=== PATIENT | female | born 1945 | race Caucasian/White ===

== ENCOUNTER → 2020-07-12 | Outpatient (CLI) | payer MEDICARE ==
--- NOTE | 2020-07-17 15:55 | PE ---
PET/CT HISTORY: R 91.8, solitary pulmonary nodule, initial Patient received 12.5 mCi F-18 FDG intravenously delayed scanning was performed from the skull base t o the mid thighs. A localization and attenuation correction CT scan was performed. Correlation to chest CT 06/26/2020 Chest and neck: There is no supraclavicular or cervical adenopathy. Low-density right thyroid nodule is present. There is enlargement of the retrocaval pretracheal node, mild uptake noted SUV only 2.2, subcarinal node is present. The lower lobe, right middle lobe atelectatic changes or pneumonia on the right does not show associated uptake. There are coronary calcifications. ABDOMEN: There is no evident adrenal mass. Patient is postcholecystectomy. No retroperitoneal adenopa thy or suspicious hypermetabolic uptake within the abdomen. Osseous structures are within normal limits. There is degenerative disc change and facet arthropathy in the lower lumbar spine. IMPRESSION: Mediastinal adenopathy. Findings within the right lower lobe and right middle lobe are si milar to prior CT.
== END | disposition home or self-care (01) ==
LOC: RADPETMAIN 10:20
PROVIDERS: ATTEND Internal Medicine Critical Care Medicine
DX: R59.0 Localized enlarged lymph nodes (principal); E11.9 Type 2 diabetes mellitus without complications
CPT/HCPCS: 78815; A9552

== ENCOUNTER 2020-07-23 11:20 | Day surgery (SDC) | payer MEDICARE ==
[2020-07-19 13:48] VITALS: BMI 26.2
[~2020-07-23 11:20] MED LIST: ALBUTEROL NEB (CONC) 2.5 MG/0.5 ML INHALATION ONE; ATROPINE SULFATE 0.4 MG/ML 1 ML VIAL IM ONE; DEXAMETHASONE SOD PHOSPHATE 4 MG/ML 1 ML VIAL IV ONE; LACTATED RINGERS 1,000 ML IV SCH; LIDOCAINE 1% (10MG/ML) FOR IV START INTRADERMA PRN; LIDOCAINE 2% (PF) 20 MG/ML 5 ML VIAL INHALATION ONE; LIDOCAINE VISCOUS 300 MG/15 ML CUP MUCOUS MEM ONE; ONDANSETRON 4 MG/2 ML VIAL IVP ONE; SODIUM CHLORIDE 0.9% 1,000 ML IV SCH
[2020-07-23] MEDS ORDERED: LACTATED RINGERS 1,000 ML IV ONE ×2 (11:50)
[2020-07-23 12:09] LABS: Glucose,Whole Blood 106 mg/dL (75-99)
[2020-07-23] MEDS ORDERED: GLYCOPYRROLATE 0.2 MG/ML 2 ML VIAL ONE (12:30)
[2020-07-23] MEDS ORDERED: SUCCINYLCHOLINE CHLORIDE 100 MG/5 ML SYR IV ONE (12:30)
[2020-07-23] MEDS ORDERED: PROPOFOL 10 MG/ML 20 ML VIAL IV ONE (12:30)
[2020-07-23] MEDS ORDERED: LIDOCAINE 1% INJ 10MG/ML (20 ML MDV) ONE (12:30)
[2020-07-23 13:31] VITALS: TEMP 97.5
[2020-07-23 13:32] LABS: Glucose,Whole Blood 103 mg/dL (75-99)
[2020-07-23 13:33] VITALS: RESP 16
--- NOTE | 2020-07-23 13:37 | FL ---
EXAMINATION TYPE: FL bronchoscopy DATE OF EXAM: 07/23/2020 CLINICAL HISTORY: Bronch Rt upper lobe bx TECHNIQUE: Fluoroscopy. COMPARISON: None. FINDINGS: 1 min 8 sec fl time used with doctor Thea smith images saved IMPRESSION: As Above.
--- NOTE | 2020-07-23 14:21 | XR ---
EXAMINATION TYPE: XR chest 1V portable DATE OF EXAM: 07/23/2020 HISTORY: Shortness of breath. COMPARISON: None. TECHNIQUE: Single view of the chest is submitted. FINDINGS: Demonstrated are scattered senescent parenchymal change. Right lower lobe infiltrate with air bronchograms seen may reflect underlying pneumonia. Correlate cl inically and progress studies are recommended. The heart is stable. Hilar and mediastinal structures are within normal limits. Degenerative changes are seen of the dorsal spine. IMPRESSION: 1. Right lower lobe infiltrate with air bronchograms seen may reflect underlying pneumonia. Correlat e clinically and progress studies are recommended.
[2020-07-23 15:01] VITALS: PULSE 80
[2020-07-23 15:03] VITALS: BP 157/76
[2020-07-23 21:50] LABS: Appearance,BF Hazy; Color,BF Colorless; Nucleated Cells, Body Fluid 16 /uL; RBC, Body Fluid 9 /uL
--- NOTE | 2020-07-24 05:34 | PCN ---
PROCEDURE NOTE PULMONARY/CRITICAL CARE PROCEDURE NOTE: PROCEDURE: Bronchoscopy, airway examination, therapeutic lavage, BAL, transbronchial biopsies right lower lobe, brushes right lower lobe, BAL right lower lobe. OPERATORS: Dr. Sidhu and Annamaria Aguirre. There was informed consent and universal timeout. The patient's procedure was done in room 1. Anesthesia, Sierra Bradley CRNA provided general anesthesia. There was informed consent and universal timeout. PREOPERATIVE DIAGNOSIS: Pneumonia. POSTOPERATIVE DIAGNOSIS: Pneumonia. The procedure took place in room #1. DESCRIPTION OF PROCEDURE: After the patient was adequately sedated and fully anesthetized, the bronchoscope was inserted through the bronchoscope adapter connected to the endotracheal tube. The airways were first examined with the bronchoscope. The right upper lobe and its 3 segments, right middle lobe and its 2 segments, right lower lobe and its 5 segments, left upper lobe proper and its 2 segments, lingula and its 2 segments and left lower lobe and its 4 segments all had similar findings of diffuse mild airways erythema and hyperemia. There was mild diffuse bronchitis. There was some mucosal friability. There was some mild vascular engorgement. There was no dominant mass or lesion. The bronchoscope was then positioned into the right lower lobe. We did brushes under fluoroscopic guidance in the right lower lobe. We did multiple transbronchial biopsies in the right lower lobe under fluoroscopic guidance. Finally, we did a BAL in the right lower lobe. The patient tolerated the procedure well. There was minimal bleeding. There was no immediate complication. We checked for pneumothorax under fluoro. There was none. A formal chest x-ray was ordered. The specimens will be sent to the laboratory. The patient will be recovered. MMODL / IJN: [id number] /
== END 2020-07-23 15:15 | disposition home or self-care (01) ==
LOC: ORWHC2ENDO 11:20
PROVIDERS: ATTEND Internal Medicine Critical Care Medicine
DX: J98.4 Other disorders of lung (principal); J40 Bronchitis, not specified as acute or chronic; J81.1 Chronic pulmonary edema; J18.9 Pneumonia, unspecified organism; K08.109 Complete loss of teeth, unspecified cause, unspecified class; I10 Essential (primary) hypertension; E78.5 Hyperlipidemia, unspecified; E11.9 Type 2 diabetes mellitus without complications; Z79.899 Other long term (current) drug therapy; Z79.4 Long term (current) use of insulin
CPT/HCPCS: 88104; 88108; 88305; 89050; 87252; 87070; 87205; 87116; 87102; 87206; 71045; 31628; 31623; 31624; J0461; J2405; J2001; J0330; J2704; 88341; 88342

== ENCOUNTER → 2021-10-02 | Outpatient (CLI) | payer MEDICARE ==
[~2021-10-02] MED LIST changes: -ALBUTEROL NEB (CONC) 2.5 MG/0.5 ML INHALATION ONE; -ATROPINE SULFATE 0.4 MG/ML 1 ML VIAL IM ONE; -DEXAMETHASONE SOD PHOSPHATE 4 MG/ML 1 ML VIAL IV ONE; -LACTATED RINGERS 1,000 ML IV SCH; -LIDOCAINE 1% (10MG/ML) FOR IV START INTRADERMA PRN; -LIDOCAINE 2% (PF) 20 MG/ML 5 ML VIAL INHALATION ONE; -LIDOCAINE VISCOUS 300 MG/15 ML CUP MUCOUS MEM ONE; -ONDANSETRON 4 MG/2 ML VIAL IVP ONE; -SODIUM CHLORIDE 0.9% 1,000 ML IV SCH; +SODIUM CHLORIDE 0.9% 50 ML IVPB NR; +SODIUM CHLORIDE 0.9% 500 ML 500 ML in EMPTY BAG 1 BAG IV PRN; +SOTROVIMAB (EUA) 500 MG in SODIUM CHLORIDE 0.9% 100 ML IVPB NR
[2021-10-02 14:15] VITALS: RESP 16; TEMP 98.3
[2021-10-02 15:00] VITALS: BP 149/71; PULSE 82
== END ==
LOC: PROCWHC3 12:52
PROVIDERS: ATTEND Internal Medicine Geriatric Medicine
DX: U07.1 COVID-19 (principal)
CPT/HCPCS: 96360; Q0247; M0247

== ENCOUNTER 2024-06-06 10:07 | Day surgery (SDC) | payer MEDICARE ==
[2024-06-02 10:49] VITALS: BMI 27.4
[~2024-06-06 10:07] MED LIST changes: +ALPRAZolam 0.25 MG TAB PO PRN; +ALPRAZolam 0.5 MG TAB PO PRN; +HEPARIN SODIUM,PORCINE (1 ML) 2,500 UNIT in SODIUM CHLORIDE 0.9% 250 ML IRRIGATION PRN; +HEPARIN SODIUM,PORCINE 10,000 UNIT in SODIUM CHLORIDE 0.9% 1,000 ML IRRIGATION PRN; +NITROGLYCERIN SL TABS 0.4 MG TAB SUBLINGUAL PRN; -SODIUM CHLORIDE 0.9% 50 ML IVPB NR; -SODIUM CHLORIDE 0.9% 500 ML 500 ML in EMPTY BAG 1 BAG IV PRN; -SOTROVIMAB (EUA) 500 MG in SODIUM CHLORIDE 0.9% 100 ML IVPB NR
[2024-06-06 10:42] VITALS: RESP 16; TEMP 97.7
[2024-06-06 10:42] LABS: Glucose,Whole Blood 139 mg/dL (70-110)
[2024-06-06] MEDS: SODIUM CHLORIDE 0.9% 1,000 ML in EMPTY BAG 1 BAG IV SCH (10:54)
[2024-06-06] MEDS: ASPIRIN 325 MG TAB PO ONE (10:54)
[2024-06-06] MEDS: SODIUM CHLORIDE 0.9% 1,000 ML IV ONE (10:59)
[2024-06-06 11:00] LABS: African American GFR (CKD) 69 (>60 ml/min/1.73 sqM); Anion Gap 7 mmol/L; Blood Urea Nitrogen 31 mg/dL (7-17); Calcium 9.1 mg/dL (8.4-10.2); Carbon Dioxide 24 mmol/L (22-30); Chloride 109 mmol/L (98-107); Glucose 139 mg/dL (74-99); Non-African American GFR(CKD) 60 (>60 ml/min/1.73 sqM); Sodium 140 mmol/L (137-145)
[2024-06-06 11:01] LABS: Basophils % (A) 1 %; Eosinophils # (A) 0.2 k/uL (0-0.7); Eosinophils % (A) 3 %; HGB 12.7 gm/dL (11.4-16.0); Lymphocytes # (A) 1.9 k/uL (1.0-4.8); Lymphocytes % (A) 23 %; MCH 27.7 pg (25.0-35.0); MCHC 32.7 g/dL (31.0-37.0); MCV 84.6 fL (80.0-100.0); Mean Platelet Volume 7.7; Monocytes # (A) 0.4 k/uL (0-1.0); Monocytes % (A) 5 %; Neutrophils # (A) 5.4 k/uL (1.3-7.7); Neutrophils % (A) 67 %; Platelet Count 264 k/uL (150-450); RDW 14.6 % (11.5-15.5); WBC 8.1 k/uL (3.8-10.6)
[2024-06-06 11:18] LABS: Potassium 5.3 mmol/L (3.5-5.1)
[2024-06-06] MEDS: LIDOCAINE 1% INJ 10MG/ML (20 ML MDV) SQ ONE (12:52)
[2024-06-06] MEDS: MIDAZOLAM 2 MG/2 ML VIAL IVP ONE (12:52)
[2024-06-06] MEDS: VERAPAMIL SYRINGE (5 MG/10 ML) INTRAARTER ONE (12:54)
[2024-06-06] MEDS: HEPARIN SODIUM 1,000 UN/ML (10ML VL) IVP ONE (12:56)
[2024-06-06] MEDS ORDERED: RX INFO: IV CONTRAST WAS GIVEN 1 EACH MISC MISCELLANE PRN (13:07)
--- NOTE | 2024-06-06 13:10 | P.PCN ---
Date of Procedure: 06/06/24 Operative Findings: CARDIAC CATHETERIZATION PERFORMING PHYSICIAN: Robert Esquivel MD, RPVI PROCEDURE PERFORMED: 1. Selective right and left coronary angiogram 2. Left heart catheterization 3. Ultrasound-guided access of the right radial artery INDICATION: Symptomatic 78-year-old female patient with abnormal myocardial perfusion imaging stress test COMPLICATION: None APPROACH: Right radial artery LEVEL OF SEDATION: Moderate with a sedation length of 20 minutes PROCEDURE DESCRIPTION: After obtaining an informed consent, the patient was brought to cardiac landscaping and groundskeeping laborer. Local anesthesia was performed using lidocaine subcutaneously. The right radial artery was cannulated using Seldinger technique, the guidewire passed easily, following that we advanced a 5-Ethiopian sheath dilator assembly, the wire and dilator were removed and sheath was flushed. Following that, 2 mg of verapamil along with 5000 unit heparin were given. Selective right and left coronary angiogram using a 6-Eth[place]ian JR4 and JL 3.5 catheters. Following that we did left heart catheterization using 6-Eth[place]ian pigtail catheter . The procedure was completed there was no complication. SELECTIVE CORONARY ANGIOGRAM: The right coronary artery: Medium caliber vessel nondominant vessel with moderate to severe diffuse stenosis/disease Left main: Calcified with mild to moderate disease The left circumflex: Large-caliber vessel a dominant vessel with ostial lesion appears to be in the range of 60 to 70% The left anterior descending artery: Large-caliber vessel with mild to moderate diffuse disease with no high-grade stenosis was identified HEMODYNAMICS: The LVEDP was 18 mmHg with no significant gradient across aortic valve CONCLUSION: 1. Extremely calcified right and left coronary system 2. Intermediate to severe disease involving the ostial LCx as well as first obtuse marginal branch POSTPROCEDURE MANAGEMENT: Consider medical treatment at this point Consider Dobler wire measurement of the left circumflex lesion if the patient remains symptomatic in spite of maximized medical treatment
[2024-06-06] MEDS: IOPAMIDOL-370 200ML BTL INJ ONE (13:13)
[2024-06-06] MEDS: SODIUM CHLORIDE 0.9% 1,000 ML IV SCH (13:19)
[2024-06-06 15:14] VITALS: PULSE 64
[2024-06-06 16:43] VITALS: BP 174/75
== END 2024-06-06 16:30 | disposition home or self-care (01) ==
LOC: CATHCVL 10:07
PROVIDERS: ATTEND Internal Medicine Interventional Cardiology
DX: R06.02 Shortness of breath
CPT/HCPCS: 80048; 85025; 93458